=== PATIENT | male | born 2000 | race Caucasian/White ===

== ENCOUNTER 2021-04-15 13:20 | Emergency (ER) ==
[~2021-04-15] VITALS: Ht 170.2 cm; Wt 64.2 kg
== END 2021-04-15 21:32 | disposition left against medical advice (07) ==
LOC: M ED 13:20
DX: Z53.29 Procedure and treatment not carried out because of patient's decision for other reasons (principal)

== ENCOUNTER 2024-05-17 09:14 | Inpatient (IN) | payer OTHER ==
[~2024-05-17] VITALS: Ht 170.2 cm; Wt 70.0 kg
[2024-05-17 09:55] LABS: HEMATOCRIT 45.5 % (42.0-52.0); HEMOGLOBIN 15.2 g/dl (13.5-17.5); MEAN CORPUSCULAR HEMOGLOBIN 27.9 pg (27.0-33.0); MEAN CORPUSCULAR HGB CONC 33.4 g/dl (32.0-36.5); MEAN CORPUSCULAR VOLUME 83.5 fl (80.0-96.0); PLATELET COUNT, AUTOMATED 262 10^3/uL (150-450); RED BLOOD COUNT 5.45 10^6/uL (4.30-6.10); WHITE BLOOD COUNT 5.8 10^3/uL (4.0-10.0)
[2024-05-17 10:20] LABS: ETHYL ALCOHOL (ETHANOL) < 0.003 % (0.000-0.010); SALICYLATE LEVEL < 3.0 MG/DL (<30)
[2024-05-17 10:21] LABS: ALBUMIN 4.3 G/DL (3.2-5.2); ALKALINE PHOSPHATASE 48 U/L (40-129); ALT/SGPT 27 U/L (7.0-40); AST/SGOT 23 U/L (<34); BILIRUBIN,DIRECT 0.8 MG/DL (<0.4); BILIRUBIN,TOTAL 2.5 MG/DL (0.3-1.2); BLOOD UREA NITROGEN 13 MG/DL (9-23); CALCIUM LEVEL 9.6 MG/DL (8.5-10.1); CARBON DIOXIDE LEVEL 25 MMOL/L (20-31); CHLORIDE LEVEL 105 MMOL/L (98-107); CREATININE FOR GFR 1.05 MG/DL (0.70-1.30); GLOMERULAR FILTRATION RATE > 60.0 (>60); GLUCOSE, FASTING 97 MG/DL (60-100); POTASSIUM SERUM 3.9 MMOL/L (3.5-5.1); SODIUM LEVEL 139 MMOL/L (136-145); TOTAL PROTEIN 7.5 G/DL (5.7-8.2)
[2024-05-17 10:23] LABS: THYROID STIMULATING HORMONE 1.524 uIU/ML (0.55-4.78)
[2024-05-17 10:53] LABS: AMPHETAMINES LEVEL URINE NEGATIVE (NEGATIVE); BARBITURATES URINE NEGATIVE (NEGATIVE); BENZODIAZEPINES URINE NEGATIVE (NEGATIVE); CANNABINOIDS URINE NEGATIVE (NEGATIVE); COCAINE METABOLITE URINE NEGATIVE (NEGATIVE); METHADONE URINE NEGATIVE (NEGATIVE); OPIATES URINE NEGATIVE (NEGATIVE); PHENCYCLIDINE URINE NEGATIVE (NEGATIVE)
[2024-05-17] MEDS ORDERED: IBUPROFEN 400MG TAB PO PRN (12:50)
[2024-05-17] MEDS ORDERED: MOM 30ML SUSPENSION UDC PO PRN (12:50)
[2024-05-17] MEDS ORDERED: MAALOX 30 ML SUSP *UDC PO PRN (12:50)
[2024-05-17] MEDS ORDERED: ACETAMINOPHEN 325 MG TAB PO PRN (12:50)
[2024-05-17] MEDS ORDERED: HOME MED LIST COMPLETE! XX SCH (14:30)
[2024-05-17 14:48] VITALS: BP 125/87; TEMP 97.6; O2SAT 98
[2024-05-18 06:35] VITALS: BP 96/50; TEMP 97.8; O2SAT 99
[2024-05-18 15:44] VITALS: BP 114/66; TEMP 98.1; O2SAT 100
[2024-05-18] MEDS: traZODone 50 MG TAB PO PRN (20:21)
[2024-05-18] MEDS: diphenhydrAMINE 25MG CAP PO PRN (20:21)
[2024-05-19 06:47] VITALS: BP 95/60; TEMP 97.2; O2SAT 98
[2024-05-19 15:45] VITALS: BP 117/77; TEMP 98.3; O2SAT 100
[2024-05-20 06:35] VITALS: BP 117/66; TEMP 97.1; O2SAT 100
== END 2024-05-20 11:27 | disposition home or self-care (01) | DRG 881 ==
LOC: EDBD 09:14 → M ED 09:14 → M ED INP 12:48 → M PSY 14:23
PROVIDERS: ADMIT Psychiatry & Neurology Psychiatry; ATTEND Psychiatry & Neurology Psychiatry
DX: F32.A Depression, unspecified (principal); F17.200 Nicotine dependence, unspecified, uncomplicated; Z81.8 Family history of other mental and behavioral disorders; Z63.4 Disappearance and death of family member; Z88.8 Allergy status to other drugs, medicaments and biological substances

== ENCOUNTER → 2024-08-08 | Outpatient (CLI) | payer OTHER | LOC: M SOG 07:52 | PROVIDERS: ATTEND Orthopaedic Surgery Hand Surgery | DX: Z53.9 Procedure and treatment not carried out, unspecified reason (principal) ==

== ENCOUNTER 2024-09-09 06:08 | Day surgery (SDC) | payer OTHER ==
[~2024-09-09] VITALS: Ht 170.2 cm; Wt 71.9 kg
[~2024-09-09 06:08] MED LIST: LEXA1TAB PO; PRAZ1CAP PO; TRAZ-186 PO
[2024-09-09] MEDS ORDERED: LR 1,000 ML IV SCH (06:25)
[2024-09-09] MEDS ORDERED: ACETAMINOPHEN 1000MG/100ML IV BAG As Ordered ONE (07:00)
[2024-09-09] MEDS ORDERED: LIDOCAINE 2% 100MG/5ML SDV (FOR ANES.) As Ordered ONE (07:01)
[2024-09-09] MEDS ORDERED: ONDANSETRON 4MG 2ML VIAL As Ordered ONE (07:01)
[2024-09-09] MEDS ORDERED: propofoL 200 MG/20 ML VIAL As Ordered ONE (07:01)
[2024-09-09] MEDS ORDERED: MIDAZOLAM INJ 2MG/2ML VIAL As Ordered ONE (07:02)
[2024-09-09] MEDS ORDERED: fentaNYL 100 MCG/2 ML INJECTION As Ordered ONE (07:02)
[2024-09-09] MEDS ORDERED: KETOROLAC 30 MG/ML 1ML VIAL As Ordered ONE (07:05)
[2024-09-09] MEDS: ceFAZolin SODIUM 2 GM VIAL As Ordered ONE (07:45)
[2024-09-09] MEDS: BACITRACIN OINTMENT 30GM TUBE As Ordered ONE (08:28)
[2024-09-09] MEDS ORDERED: oxyCODONE 5MG TAB PO PRN (08:30)
[2024-09-09] MEDS ORDERED: ONDANSETRON 4MG 2ML VIAL IV PRN (08:30)
[2024-09-09] MEDS ORDERED: fentaNYL 100 MCG/2 ML INJECTION IV PRN (08:30)
[2024-09-09 09:53] VITALS: BP 125/60; TEMP 96.9; O2SAT 100
== END 2024-09-09 10:55 | disposition home or self-care (01) ==
LOC: M SDC 06:08
PROVIDERS: ATTEND Orthopaedic Surgery Hand Surgery
DX: M67.431 Ganglion, right wrist (principal); Z88.8 Allergy status to other drugs, medicaments and biological substances; Z79.899 Other long term (current) drug therapy; F17.290 Nicotine dependence, other tobacco product, uncomplicated
CPT/HCPCS: 25111; 88305; J0131; J0665; J0690; J1100; J1885; J2250; J2405; J3010